=== PATIENT | male | born 1985 | race Caucasian/White ===

== ENCOUNTER 2017-02-10 12:16 | Emergency (ER) | payer SELFPAY ==
[2017-02-10] MEDS ORDERED: Ketorolac INJ* 60 MG/2 ML VIAL IM ONE (12:59)
--- NOTE | 2017-02-10 13:01 | UC ---
steve Dozier Timothy, scribed for Valarie Goel MD on 02/10/17 at 1258 . Neck Pain HPI - HPI Summary HPI Summary: Guy De Leon is a 31 yo male presenting to [facility] with sharp right arm and neck pain for the past 2 weeks. Pt states his pain started in his right upper nack and neck after "sleeping wrong." Pt states discomfort and tightness has progressed. Pt now with intermittent shooting pain down right arm. Pt denies muscle weakness. Pt RHD. Pt has taken ASA intermittently with little relief. Pt denies LAI. No vision changes. No cp, sob, abd pain. No h/o similar. He denies any weakness in his extremities. Pt denies direct trauma. He denies any other Sx. He is self-medicating with ASA, most recently yesterday. His MHx includes internal bleeding and surgery for resolution of the bleeding. Pt medication list was reviewed this visit. - History of Current Complaint Stated Complaint: ARM/NECK PAIN Time Seen by Provider: 02/10/17 12:29 Hx Obtained From: Patient Onset/Duration Of Injury/Symptoms: Days Mechanism Of Injury: No Known Trauma Timing: Constant Onset/Duration: Gradual Onset, Lasting Days, Still Present Severity: Moderate Pain Scale Used: 0-10 Numeric Location: Discrete At: - neck, raditing down right arm Character: Sharp - Allergies/Home Medications Allergies/Adverse Reactions: Allergies Allergy/AdvReac Type Severity Reaction Status Date / Time No Known Allergies Allergy Verified 02/10/17 13:22 PMH/Surg Hx/FS Hx/Imm Hx Previously Healthy: Yes - Surgical History Surgical History: Yes Surgery Procedure, Year, and Place: internal abdomen from football injury - Family History Known Family History: Positive: Hypertension, Diabetes Negative: Cardiac Disease - Social History Occupation: Employed Full-time Lives: With Family Alcohol Use: Rare Substance Use Type: None Smoking Status (MU): Never Smoked Tobacco Review Of Systems Constitutional: Positive: Negative Skin: Positive: Negative Eyes: Positive: Negative ENT: Positive: Negative Respiratory: Positive: Negative Cardiovascular: Positive: Negative Gastrointestinal: Positive: Negative Genitourinary: Positive: Negative Musculoskeletal: Positive: Other: - neck pain, right arm pain Neurological: Positive: Negative Psychological: Positive: Negative All Other Systems Reviewed And Are Negative: Yes Physical Exam Triage Information Reviewed: Yes Completion Of Physical Exam Limited Due To: Altered Mental Status Appearance: Well-Appearing, No Pain Distress, Well-Nourished Vital Signs Reviewed: Yes Eye Exam: Normal ENT: Positive: Normal ENT inspection, Hearing grossly normal Neck exam: Normal Neck: Positive: Supple, Nontender, No Lymphadenopathy Respiratory Exam: Normal Respiratory: Positive: Chest non-tender, Normal breath sounds, No respiratory distress Cardiovascular Exam: Normal Cardiovascular: Positive: RRR, No Murmur, Pulses Normal Abdominal Exam: Normal Abdomen Description: Positive: Nontender, No Organomegaly, Soft Bowel Sounds: Positive: Present Musculoskeletal Exam: Normal Musculoskeletal: Positive: Strength Intact, Other: - No pain C/T/L/S + TTP right trapezius Pain increases with ROM of neck extension and abduction of right shoulder Pt unable to abduct > 45 degrees second to pain - improved to 90 with passive ROM Pt unable to extend >45 - improves with passive ROM Neurological Exam: Normal Neurological: Positive: Other: - thumb up, a ok, finger spread, finger cross + gross sensation throughout Neck Pain Course/Dx - Course Course Of Treatment: Guy De Leon is a 31 yo male presenting to [facility] with neck, upper back, and right arm pain for the past 2 weeks. Pain along palpation of trapezius. limited AROM - improved with PROM Upon questioning Pt states he has tolerated narcotics in the past with no complications. Pt was advised as to the cause of muscle spasms and the possible treatments and prescriptions. After clinical examination he will be discharged home with appropriate instructions. d/w pt sling - must relax and allow to hold weight or arm. recommend heat - slow stretching exericses. Toradol IM at . Flexeril / [place] - Differential Dx/Diagnosis Differential Dx/HQI/PQRI: Other - muscle spasm Provider Diagnoses: right trapezius muscle spasm Discharge - Discharge Plan Condition: Stable Disposition: HOME Prescriptions: Cyclobenzaprine TAB* [Flexeril 10 MG TAB*] 10 mg PO BID PRN #20 tab PRN Reason: Spasms Hydrocodone-Acetaminophen [[place] 5-325 mg] 1 - 2 tab PO Q6HR PRN #15 tab MDD 8 PRN Reason: Pain Patient Education Materials: Warm Compress or Soak (ED), Muscle Spasm (ED) Referrals: Vania Henning MD [Primary Care Provider] - 2 Days Additional Instructions: - Okay to take tylenol product (Tylenol or [place]) for pain. do NOT drive, operate machinery or drink alcohol while taking codeine. Do NOT drive, operate machinery or drink alcohol while taking [place] - Take muscle relaxer as prescribed -Do NOT drive, operate machinery or drink alcohol while taking narcotics or muscle relaxer - Apply heat - wrapped in a towel - 20 minutes at a time, 2-3 times a day - Wear arm sling for comfort and support - concentrate relaxing your arm and letting the sling hold the weight - Contact your doctor to arrange a follow-up appointment. Contact your doctor or return with questions or concerns Return to urgent care or the emergency department with any new or recurring symptoms. The documentation as recorded by the steve colon Timothy accurately reflects the service I personally performed and the decisions made by me, Valarie Goel MD.
== END 2017-02-10 13:40 | disposition home or self-care (01) ==
LOC: UCEAST 12:16
DX: M62.838 Other muscle spasm (principal)
CPT/HCPCS: 99202; G0463; J1885

== ENCOUNTER 2018-02-04 01:00 | Observation (INO) | payer OTHER ==
[2018-02-04] MEDS ORDERED: Insulin REGULAR(*) 1 UNITS UNIT IV PUSH ONE ×2 (01:59→03:17)
[2018-02-04] MEDS ORDERED: NS 0.9% 1000 ML* 2,000 ML IV ONE ×2 (01:59→05:32)
[2018-02-04 02:54] LABS: ABS Basophils 0.1 10^3/ul (0-0.2); ABS Eosinophils 0.1 10^3/ul (0-0.6); ABS Lymphocytes 1.8 10^3/ul (1.0-4.8); ABS Monocytes 0.5 10^3/ul (0-0.8); ABS Neutrophils 6.7 10^3/ul (1.5-7.7); ABS Nucleated RBC 0 10^3/ul; Eosinophil % 1.6 % (0-6); Hematocrit 43 % (42-52); Hemoglobin 14.8 g/dl (14.0-18.0); Lymphocyte % 19.8 % (25-47); Mean Corpuscular HGB Conc 34 g/dl (31-36); Mean Corpuscular Hemoglobin 31 pg (27-31); Mean Corpuscular Volume 92 fL (80-94); Mean Platelet Volume 9.9 um3 (7.4-10.4); Nucleated Red Blood Cells % 0; Platelet Count 227 10^3/ul (150-450); Red Blood Count 4.71 10^6/ul (4.0-5.4); Red Cell Distribution Width 13 % (10.5-15); White Blood Count 9.2 10^3/ul (3.5-10.8)
[2018-02-04 03:02] LABS: INR 0.9 (0.77-1.02)
[2018-02-04 03:10] LABS: EGFR Non-African American 101.7 (>60)
[2018-02-04] MEDS ORDERED: Insulin REGULAR(*) 1 UNITS UNIT ONE (03:18)
[2018-02-04 04:27] LABS: Urine Appearance Clear; Urine Blood 1+ (Negative); Urine Color Yellow; Urine Ketones Trace (Negative); Urine Protein Negative (Negative); Urine Specific Gravity 1.035 (1.010-1.030); Urine Urobilinogen Negative (Negative)
[2018-02-04] MEDS ORDERED: Levofloxacin TAB* 500 MG PO ONE (04:38)
[2018-02-04] MEDS ORDERED: metFORMIN* 500 MG TAB PO ONE (04:39)
[2018-02-04] MEDS ORDERED: Insulin IVPB 100 units/100 ml 100 UNITS/100 ML UNIT IVPB ONE (05:00)
--- NOTE | 2018-02-04 05:12 | ED ---
Shady oDzier Tiffany, scribed for Jass Rhodes MD on 02/04/18 at 0201 . Dizziness - HPI Summary HPI Summary: 32 y/o M presenting to [facility] complains of dizziness that began yesterday. Symptoms aggravated by nothing. Symptoms alleviated by nothing. Reports blurred vision, nausea. Denies pain. Pt states he has been extremely thirsty, drinking a lot of water, peeing a lot. FHx of diabetes. No hx of diabetes. - History Of Current Complaint Chief Complaint: EDNauseaVomitDiarrh Stated Complaint: NAUSEA/VOMITING Time Seen by Provider: 02/04/18 01:43 Hx Obtained From: Patient Onset/Duration: Still Present Aggravating Factor(s): Nothing Alleviating Factor(s): Nothing Associated Signs And Symptoms: Positive: Negative - Pain, Other: - blurred vision, nausea, has been extremely thirsty, drinking a lot of water, peeing a lot - Allergies/Home Medications Allergies/Adverse Reactions: Allergies Allergy/AdvReac Type Severity Reaction Status Date / Time No Known Allergies Allergy Verified 02/10/17 13:22 Home Medications: Home Medications NK [No Home Medications Reported] 02/04/18 [History Confirmed 02/04/18] PMH/Surg Hx/FS Hx/Imm Hx Previously Healthy: No Cardiovascular History: Reports: Hx Hypertension - BORDERLINE Sensory History: Reports: Hx Contacts or Glasses Opthamlomology History: Reports: Hx Contacts or Glasses Psychiatric History: Denies: Hx Panic Disorder - Surgical History Surgery Procedure, Year, and Place: internal abdomen from football injury - Immunization History Date of Tetanus Vaccine: utd Date of Influenza Vaccine: none Infectious Disease History: No Infectious Disease History: Denies: Traveled Outside the [place] in Last 30 Days - Family History Known Family History: Positive: Hypertension, Diabetes Negative: Cardiac Disease - Social History Alcohol Use: Rare Hx Substance Use: No Substance Use Type: Reports: None Hx Tobacco Use: No Smoking Status (MU): Never Smoked Tobacco Review of Systems Positive: Blurred Vision Positive: Nausea Positive: other - has been extremely thirsty, drinking a lot of water, peeing a lot. Musculoskeletal: Negative - pain Neurological: Other - Dizziness All Other Systems Reviewed And Are Negative: Yes Physical Exam - Summary Physical Exam Summary: VITAL SIGNS: Reviewed. GENERAL: Patient is a well-developed and nourished male who is lying comfortable in the stretcher. Patient is not in any acute respiratory distress. He is morbidly obses. HEAD AND FACE: No signs of trauma. No ecchymosis, hematomas or skull depressions. No sinus tenderness. EYES: PERRLA, EOMI x 2, No injected conjunctiva, no nystagmus. EARS: Hearing grossly intact. Ear canals and tympanic membranes are within normal limits. MOUTH: Oropharynx within normal limits. NECK: Supple, trachea is midline, no adenopathy, no JVD, no carotid bruit, no c- spine tenderness, neck with full ROM. CHEST: Symmetric, no tenderness at palpation LUNGS: Clear to auscultation bilaterally. No wheezing or crackles. CVS: Regular rate and rhythm, S1 and S2 present, no murmurs or gallops appreciated. ABDOMEN: Soft, non-tender. No signs of distention. No rebound no guarding, and no masses palpated. Bowel sounds are normal. EXTREMITIES: FROM in all major joints, no edema, no cyanosis or clubbing. NEURO: Alert and oriented x 3. No acute neurological deficits. Speech is normal and follows commands. SKIN: Dry and warm Triage Information Reviewed: Yes Vital Signs On Initial Exam: Initial Vitals Temp Pulse Resp BP Pulse Ox 96.9 F 105 22 154/96 94 02/04/18 01:01 02/04/18 01:01 02/04/18 01:01 02/04/18 01:01 02/04/18 01:01 Vital Signs Reviewed: Yes Diagnostics - Vital Signs Vital Signs Temp Pulse Resp BP Pulse Ox 02/04/18 01:01 96.9 F 105 22 154/96 94 - Laboratory Result Diagrams: 02/04/18 02:40 02/04/18 02:40 Lab Statement: Any lab studies that have been ordered have been reviewed, and results considered in the medical decision making process. - Radiology CXR Radiology Interpretation Completed By: ED Physician - CXR is negative. Pending official report. Re-Evaluation - Re-Evaluation First Eval Re-Evaluation Time: 04:54 Change: Unchanged Comment: Pt agreeable to admission. Dizzy Course/Dx - Course Course Of Treatment: 32 y/o M presenting to [facility] complains of dizziness that began yesterday. Finger stick showed high blood glucose. Negative CXR. Pt glucose levels are not going down despite adminstration of insulin, so he will be admitted to Dr. Mata, hospitalist. - Diagnoses Provider Diagnoses: Hyperglycemia, Diabetes mellitus, new onset - Provider Notifications Discussed Care Of Patient With: Lane Mata Time Discussed With Above Provider: 04:53 Instructed by Provider To: Other - Dr. Mata, hospitalist, agrees to admit patient. Discharge - Sign-Out/Discharge Documenting (check all that apply): Discharge/Admit/Transfer - Discharge Plan Condition: Fair Disposition: ADMITTED TO [facility] Referrals: Vania Henning MD [Primary Care Provider] - The documentation as recorded by the Shady colon Tiffany accurately reflects the service I personally performed and the decisions made by , Jass Rhodes MD.
[2018-02-04] MEDS ORDERED: Acetaminophen TAB* 325 MG PO PRN (05:26)
[2018-02-04] MEDS ORDERED: Ondansetron INJ* 2 MG/ML VIAL IV PRN (05:26)
[2018-02-04] MEDS ORDERED: NS 0.9% 1000 ML* 1,000 ML IV SCH (05:30)
[2018-02-04] MEDS ORDERED: Insulin IVPB 100 units/100 ml 100 UNITS/100 ML UNIT IVPB SCH (06:00)
[2018-02-04 06:03] LABS: ABS Basophils 0.1 10^3/ul (0-0.2); ABS Eosinophils 0.2 10^3/ul (0-0.6); ABS Lymphocytes 2.7 10^3/ul (1.0-4.8); ABS Monocytes 0.6 10^3/ul (0-0.8); ABS Neutrophils 5.7 10^3/ul (1.5-7.7); ABS Nucleated RBC 0 10^3/ul; Eosinophil % 2.4 % (0-6); Hematocrit 42 % (42-52); Hemoglobin 14.7 g/dl (14.0-18.0); Lymphocyte % 28.6 % (25-47); Mean Corpuscular HGB Conc 35 g/dl (31-36); Mean Corpuscular Hemoglobin 32 pg (27-31); Mean Corpuscular Volume 91 fL (80-94); Mean Platelet Volume 9.7 um3 (7.4-10.4); Nucleated Red Blood Cells % 0.1; Platelet Count 222 10^3/ul (150-450); Red Blood Count 4.65 10^6/ul (4.0-5.4); Red Cell Distribution Width 13 % (10.5-15); White Blood Count 9.3 10^3/ul (3.5-10.8)
[2018-02-04 06:32] LABS: EGFR Non-African American 113.7 (>60)
--- NOTE | 2018-02-04 08:20 | RAD ---
INDICATION: Weakness COMPARISON: None TECHNIQUE: An AP portable view obtained at 0220 hours is submitted. FINDINGS: Bones/Soft Tissues: There are no acute bony findings. Cardiomediastinal: The cardiomediastinal silhouette is normal. Lungs: There are no infiltrates. Pleura: There are no pleural effusions. Other: None IMPRESSION: NO ACTIVE DISEASE.
[2018-02-04] MEDS: ceFAZolin 2 GM PREMIX (*) 2 GM/50 ML BAG IVPB SCH ×2 (09:22→17:17)
[2018-02-04] MEDS: KCL 10 MEQ/50 ML IVPREMIX* 10 MEQ/50 ML BAG IV SCH ×2 (09:22→14:35)
[2018-02-04] MEDS: Nystatin TOP POWDER* 15 GM BTL TOPICAL SCH ×3 (09:23→21:29)
[2018-02-04] MEDS: Heparin VIAL(*) 5000 UNITS/ML VIAL (FIVE THOUSAND) SUBCUT SCH ×2 (09:24→17:17)
--- NOTE | 2018-02-04 10:33 | HP ---
CC: Dr. Henning * HISTORY AND PHYSICAL: DATE OF ADMISSION: 02/04/18 PRIMARY CARE PROVIDER: Dr. Henning. ATTENDING PHYSICIAN WHILE IN THE HOSPITAL: Dr. Lane Mata * (report dictated by Edison Grossman NP). CHIEF COMPLAINT: 1. Increased thirst. 2. Frequency in urination. 3. Dizziness. HISTORY OF PRESENTING ILLNESS: Mr. De Leon is a 32-year-old patient who has a history of childhood asthma only, who gives a history today stating that the he has been having trouble the last week with increased thirst, he is unable to quench his thirst. He said he has been drinking upwards of gallons of fluids a day particularly water, in addition to this soda, fruit punch. He says his appetite has been decreased. He says he has been urinating significant amounts. No dysuria. He has had large volume urination. No dysuria with this. He denies any abdominal pain. He had 1 episode of nausea and vomiting today. He says he noticed that a last couple of days he has been having increased dizziness and has felt lightheaded. He also stated that he was having some trouble reading signs when he was driving, which was new for him. He was concerned that there was something going on because he just was not feeling good, he was feeling fatigued. He just had no energy. So he decided to be evaluated today here in the ED. When initial fingerstick was checked, it was greater than 444 on our [id number] testing and the initial blood sugar on labs showed a blood sugar of 670. He denies any chest pain or shortness of breath. He does admit to having trouble with a rash in his groin and some itching. In addition to this, he also notes that he has one area of erythema noted to this right thigh and he says he had a pimple there that he squeezed and he had pus come out of it. Again, no fevers, no chest pain, no shortness of breath. Because of the fact that his sugars were significantly elevated in the ED, we were asked to evaluate for admission. PAST MEDICAL HISTORY: Significant for childhood asthma. PAST SURGICAL HISTORY: He has had an appendectomy. HOME MEDICATIONS: Denied. ALLERGIES TO MEDICATIONS: Include no known drug allergies. FAMILY HISTORY: His father's history is unknown. His mother is healthy. SOCIAL HISTORY: Former smoker, quit several years ago. He rarely drinks alcohol. He works as a regional truck driver. Surrogate decision maker is his filuise. REVIEW OF SYSTEMS: There is no documented fever. He denies having any significant weight change. There is no double vision. He denies having any ear discharge. There is no rhinorrhea. No sore throat. No thyroid enlargement. Denied having any chest pain. There is no orthopnea. There is no nocturnal dyspnea. There was no abdominal pain. There was one episode with nausea and vomiting. There was no dysuria. He did admit to having frequency of urination. Denies having any seizure. No loss of consciousness. No pruritus and no skin ulcerations. Review of 14 systems completed, all others were negative. PHYSICAL EXAMINATION GENERAL: At this time, Mr. De Leon is a 32-year-old male patient; he is morbidly obese. He is sitting on the ED stretcher. He does not appear to be in any acute distress. VITAL SIGNS: Blood pressure 147/92, pulse 99, respirations were 18, O2 sat 96% , temperature 96.9. HEENT: Head is atraumatic and normocephalic. Eyes: EOMs are intact. Sclerae are anicteric and not pale. Throat: Oral mucosa appears to be dry. No oropharyngeal erythema. NECK: Supple. LUNGS: Clear to auscultation bilaterally. There are no wheezes, rales, or rhonchi. HEART: Sounds S1, S2. He had a regular rate and rhythm. No murmurs, rubs, or gallops. ABDOMEN: Soft, flat, nontender. Bowel sounds were present. EXTREMITIES: Pulses were 2+ throughout. He is moving all 4 extremities with 5/ 5 strength. NEUROLOGICAL: The patient is awake, he is alert, he is oriented x3. He had no gross focal deficits. SKIN: Grossly intact with the exception he does have into his abdominal groin area he has significant erythema. In addition of this, he has on his right thigh an area of fluctuance that again did drain today. There is an area of induration. No fluctuance is noted. There is some erythema surrounding this area on his right thigh just above the right knee. Otherwise intact. LABORATORY DATA/DIAGNOSTIC STUDIES: Today revealing a WBC of 9.2, RBC of 4.71 , hemoglobin of 14.8, hematocrit of 43, and a platelet count of 227. He did have an INR of 0.090, PTT of 27.8. His VBG was unremarkable. His sodium was 127, potassium was 3.5, chloride of 91, bicarb 25, BUN 11, creatinine 0.87, his glucose initially was 697, lactate 2, calcium 9, total bili 0.5. AST 56, ALT 134, albumin of 3.6. Urine showed a high specific gravity, trace ketones, 1+ blood, 1+ leukocyte esterase, 1+ wbc, 2+ rbc, 2+ glucose. He had a chest x-ray obtained today, difficult film because of his body habitus. I do not see any infiltrates or pulmonary edema or effusions. The right hemidiaphragm did appear to be elevated. There was no previous chest x-ray for comparison. Old medical records were reviewed. ASSESSMENT AND PLAN: Mr. De Leon is a 32-year-old male patient coming into the ED today again with complaints of polydipsia, polyuria, on evaluation found to be diabetic and he has also appeared to be in, most likely, a hyperosmolar, nonketotic state. He will be admitted under inpatient status for: 1. Diabetes with associated hyperosmolar, nonketotic state. I am checking a serum osmo. I am going to give the patient two more liters of fluid. Normal saline at 150 has been ordered. I am going to start him on an insulin drip at 8 /hour with q. 1 hour fingersticks and q. 4 BMPs. We will get a BMP now to monitor his potassium. I am going to go ahead and replace it as prior to insulin boluses that were given here in the ED, his potassium was 3.5 and we will continue to follow. I did place a referral to [facility] and also to our emr analyst as he is a new diabetic and I also will place a nutrition consult. 2. Hyponatremia. Again, this is fictitiously low. His corrected sodium was 136. At this point, we will just continue to monitor this with frequent BMPs. 3. Folliculitis. It looks like he does have a folliculitis to the right lower extremity. I will place him on Ancef. 4. The patient also does appear to have a ricardo infection of the groin. I am also going to place him on nystatin powder for this. 5. Childhood asthma. Not an active issue. Follow up with primary care physician. 6. DVT prophylaxis. He is moderate risk. We will order heparin subcu. 7. Code status. Full code. 8. Fluid, electrolytes, and nutrition. Again, we will check his BMPs frequently. I would recommend putting him on a consistent carb diet. TIME SPENT: On the admission was 60 minutes; greater than half that time was spent [id number] with the patient, obtaining my history and physical. The other half of the time spent going over the plan of care with the patient and implementing the plan of care. I did discuss plan of care with my attending, Dr. Mata; he is in agreement. EDISON GROSSMAN NP [id number]/CPS #: [id number] [email or web address]
[2018-02-04 14:06] LABS: EGFR Non-African American 124.5 (>60)
[2018-02-04] MEDS ORDERED: Dextrose 50% Syringe 50 ML* 25 GM/50 ML SYRINGE IV PUSH PRN (14:29)
[2018-02-04] MEDS ORDERED: Potassium Chlor TAB* 20 MEQ TAB.ER PO STA (14:34)
[2018-02-04] MEDS ORDERED: Insulin GLARGINE(*) 1 UNITS UNIT SUBCUT SCH ×2 (15:00→20:37)
[2018-02-04] MEDS: Insulin LISPRO* 1 UNITS UNIT SUBCUT SCH ×2 (18:03→21:28)
--- NOTE | 2018-02-04 20:32 | PN ---
Hospitalist Progress Note Date of Service: 02/04/18 Pt seen and examined. Meds and labs reviewed. ROS: Denied LAI/dizziness, F/C, N/V, CP, SOB, increased cough, sputum production , abd pain, diarrhea, constipation, dysuria, myalgias, arthralgias, throat pain , and new skin lesions. The rest of the 14 point ROS are unremarkable. PHYSICAL EXAM: GEN APPEARANCE: Awake, not in acute distress HEENT: NC/AT, PERRLA, moist oral mucosa, (-) throat erythema NECK: Soft, supple, (-) cervical LAD, (-)JVD HEART: S1S2 WNL, RRR, No MRG CHEST: CTA, BL, GAE, No W/R/R ABD: Soft, ND/NT, NABS 4x Q EXT: No C/C/E SKIN: Warm to touch PSYCH: No active psychosis, hallucinations, depression, SI/HI ASSESSMENT AND PLAN: #Hyperosmolar nonketotic state, resolved/Newly diagnosed diabetes: -Transitioned to SQ Insulin earlier today after appropriate overlap between SQ and IV -Advised life style modifications and importance of eye exam, foot exam, and F/U with PCP #Foliculitis: -Continue Cefazolin #Candidal groin intertrigo: -Continue Nystatin powder #DVTp: -Continue Heparin SQ #Dispo: -For PT eval
[2018-02-04] MEDS: Insulin REGULAR(*) IIP for Adult Hyperglycemia (2017) IVPB SCH (21:32)
[2018-02-05] MEDS: ceFAZolin 2 GM PREMIX (*) 2 GM/50 ML BAG IVPB SCH ×3 (01:29→12:37)
[2018-02-05] MEDS: Heparin VIAL(*) 5000 UNITS/ML VIAL (FIVE THOUSAND) SUBCUT SCH ×3 (01:30→12:38)
[2018-02-05 06:15] LABS: ABS Basophils 0.1 10^3/ul (0-0.2); ABS Eosinophils 0.2 10^3/ul (0-0.6); ABS Lymphocytes 2.3 10^3/ul (1.0-4.8); ABS Monocytes 0.4 10^3/ul (0-0.8); ABS Neutrophils 3.9 10^3/ul (1.5-7.7); ABS Nucleated RBC 0 10^3/ul; Eosinophil % 3.6 % (0-6); Hematocrit 41 % (42-52); Lymphocyte % 33.1 % (25-47); Mean Corpuscular HGB Conc 35 g/dl (31-36); Mean Corpuscular Hemoglobin 32 pg (27-31); Mean Corpuscular Volume 92 fL (80-94); Mean Platelet Volume 9.7 um3 (7.4-10.4); Nucleated Red Blood Cells % 0.1; Platelet Count 187 10^3/ul (150-450); Red Blood Count 4.42 10^6/ul (4.0-5.4); Red Cell Distribution Width 13 % (10.5-15); White Blood Count 6.8 10^3/ul (3.5-10.8)
[2018-02-05 06:34] LABS: EGFR Non-African American 118.9 (>60)
[2018-02-05] MEDS: Insulin REGULAR(*) IIP for Adult Hyperglycemia (2017) IVPB SCH (07:49)
[2018-02-05] MEDS: Insulin LISPRO* 1 UNITS UNIT SUBCUT SCH ×2 (08:35→12:58)
[2018-02-05] MEDS ORDERED: Lisinopril TAB* 10 MG PO SCH (11:00)
[2018-02-05] MEDS: Nystatin TOP POWDER* 15 GM BTL TOPICAL SCH ×3 (13:57→14:11)
--- NOTE | 2018-02-05 15:12 | CONSULT ---
Subjective Reason for Visit: Increased thirst, increased urination, dizziness Admission Date: 02/04/18 Glucose Level On Admission: 697 History Of Present Illness: Mr. De Leon is a 32 year old male, previously in good health, who gives a history of increased urination, thirst, and generally feeling unwell for the past two weeks. On 02/03, symptoms worsened and he began experiencing nausea, blurred vision, dizziness, and vomiting. He presented to the [facility], where his blood glucose was noted to be 697. He was admitted with newly diagnosed type II diabetes with associated hyperosmolar nonketotic state. Patient History Surgical History: Yes Surgery Procedure, Year, and Place: internal abdomen from football injury Past Family History: Reports history of type II diabetes in his grandmother and several maternal aunts Lives With: Partner Social Support: Friend at bedside Preferred/Primary Language: Bahamian Employed/Unemployed: Employed Hx Tobacco Use: No Review Of Systems - Review of Systems Constant: - - Reports poor appetite, fatigue, generally feeling unwell Eyes: - - Complains of blurred vision Abdominal: - - Complains of nausea, vomiting, and heartburn Skin: - - Fungal infection left chest and groin. Endocrine: - - Complains of polyuria and polydipsia Objective Allergies Allergy/AdvReac Type Severity Reaction Status Date / Time No Known Allergies Allergy Verified 02/10/17 13:22 Home Medications Medication Instructions Recorded Confirmed Type Cephalexin CAP* [Keflex 500 CAP*] 500 mg PO QID 9 Days #18 cap 02/05/18 Rx Insulin Glargine,Hum.rec.anlog 55 unit SQ DAILY 30 Days #10 02/05/18 Rx [Basaglar Kwikpen U-100] insuln.pen Insulin LISPRO* [HumaLOG*] 15 units SUBCUT AC 30 Days #10 unit 02/05/18 Rx L. Acidophilus/L.bulgaricus 1 chw PO DAILY 12 Days #12 chw 02/05/18 Rx [Floranex] Lisinopril TAB* [Prinivil TAB 10 10 mg PO DAILY 30 Days #30 tab 02/05/18 Rx MG*] Nystatin TOP POWDER* 1 applic TOPICAL TID btl 02/05/18 Rx metFORMIN* [Glucophage 500 MG TAB 500 mg PO 0800,1700 30 Days #60 tab 02/05/18 Rx *] Hospital Medications: Current Medications Acetaminophen (Tylenol Tab*) 650 mg PO Q4H PRN PRN Reason: FEVER/PAIN Dextrose (D50w Syringe 50 Ml*) 12.5 gm IV PUSH .FOR FS < 60 - SS PRN PRN Reason: FS < 60 Heparin Sodium (Porcine) (Heparin Vial(*)) 5,000 units SUBCUT Q8H [facility] Last Admin: 02/05/18 09:15 Dose: 5,000 units Sodium Chloride (Ns 0.9% 1000 Ml*) 1,000 mls @ 150 mls/hr IV PER RATE [facility] Last Admin: 02/05/18 12:57 Dose: 150 mls/hr Insulin Human Regular (Insulin Regular Ivpb) 100 units in 100 mls @ 0 mls/hr IVPB Q24H [facility]; Per Protocol PRN Reason: Protocol Last Admin: 02/05/18 07:49 Dose: Not Given Cefazolin Sodium/Dextrose (Kefzol 2 Gm Premix(*)) 2 gm in 50 mls @ 100 mls/hr IVPB Q8H [facility] Last Admin: 02/05/18 09:15 Dose: 100 mls/hr Insulin Glargine (Lantus(*)) 55 units SUBCUT Q24H [facility] Last Admin: 02/04/18 21:27 Dose: 55 units Insulin Human Lispro (Humalog*) 0 units SUBCUT ACHS [facility] PRN Reason: Protocol Last Admin: 02/05/18 12:58 Dose: 9 units Lisinopril (Prinivil Tab*) 10 mg PO DAILY [facility] Last Admin: 02/05/18 12:58 Dose: 10 mg Metformin HCl (Glucophage*) 500 mg PO 0800,1700 [facility] Nystatin (Nystatin Top Powder*) 1 applic TOPICAL TID [facility] Last Admin: 02/05/18 14:11 Dose: Not Given Ondansetron HCl (Zofran Inj*) 4 mg IV Q6H PRN PRN Reason: NAUSEA Lab Data: VBG pH 7.41 (7.33-7.43) 02/04/18 04:00 Sodium 134 mmol/L (139-145) L 02/05/18 05:50 Potassium 4.0 mmol/L (3.5-5.0) 02/05/18 05:50 BUN 8 mg/dL (6-24) 02/05/18 05:50 Creatinine 0.76 mg/dL (0.67-1.17) 02/05/18 05:50 Hemoglobin A1c 14.0 % (4.0-5.6) H 02/04/18 05:51 Calcium 8.5 mg/dL (8.6-10.3) L 02/05/18 05:50 Magnesium 1.9 mg/dL (1.9-2.7) 02/05/18 05:50 AST 68 U/L (13-39) H 02/05/18 05:50 ALT 120 U/L (7-52) H 02/05/18 05:50 Vital Signs: Vital Signs 02/05/18 02/05/18 02/05/18 07:58 08:00 09:00 Temperature 37.3 C Pulse Rate 85 96 Respiratory 20 15 Rate Blood Pressure 155/88 (mmHg) O2 Sat by Pulse 95 98 Oximetry 02/05/18 02/05/18 02/05/18 09:01 10:00 11:00 Temperature Pulse Rate 93 97 84 Respiratory 15 18 20 Rate Blood Pressure 164/99 176/97 162/82 (mmHg) O2 Sat by Pulse 96 94 95 Oximetry 02/05/18 02/05/18 12:02 12:08 Temperature 36.6 C 36.6 C Pulse Rate 93 93 Respiratory 20 20 Rate Blood Pressure 149/77 (mmHg) O2 Sat by Pulse 96 96 Oximetry Height: 5 ft 10 in Weight: 191.3 kg Body Mass Index (BMI): 60.5 Physical Exam General Appearance: Positive: Alert, Oriented x3, Obese, Pleasant, Lying In Bed Dentition: Positive: Dentition in Good Repair Cardiovascular: Positive: RRR Skin: Acanthosis Nigricans Plan Of Care Patient's Next Step: Plan is for patient to be discharged home on Basaglar 55 units, Lispro 15 units with meals, and 500 mg. Metformin. He was provided education regarding self injection of insulin and self monitoring of blood glucose. He provided return demonstration of both self injection and blood glucose monitoring using proper technique. We discussed the signs, symptoms, and treatment of hypo and hyperglycemia and when to seek medical attention. I recommend that he follow up as an outpatient at [facility] for continued diabetes education and lifestyle modification. Referral To: [facility] For Further OutPT Diabetic Training, DSME, Professional Dilated Eye Exam, Podiatry Diagnosis: Newly diagnosed type II diabetes with hyperglycemia Discharge Plan: Per hospitalist group Education Prior Diabetic Education: No Education Provided: Daily Self Injection, Blood Glucose Monitoring, When To Seek Medical Attention Handouts Provided: Signs/symptoms/treatment of hypo and hyperglycemia, Living Well With Diabetes Goals Goals: According to the [place] [employer], the following are your goals for Hemaglobin A1C, Blood Glucose. Hemaglobin A1C * <7.0% for most * <6.5% for "healthy" * <8.0% for "Less Healthy" Blood Glucose * Fasting Blood Glucose: 80-130 mg/dl * 2 Hour Post Prandial Glucose <180 mg/dl
[2018-02-05 16:44] VITALS: BP 139/73
[2018-02-05] MEDS ORDERED: metFORMIN* 500 MG TAB PO SCH (17:00)
--- NOTE | 2018-02-06 14:10 | DS ---
CC: Lane Mata MD; Jass Rhodes MD; Mary Bui NP; Vania Henning MD; Dr. Carey DISCHARGE SUMMARY: DATE OF ADMISSION: 02/04/18 DATE OF DISCHARGE: 02/05/18 DISCHARGE DIAGNOSES: 1. Hyperosmolar nonketotic state, resolved/newly diagnosed diabetes. 2. Folliculitis, improved. 3. Candidal groin intertrigo. 4. Hypertension. 5. Obesity hypoventilation syndrome. DISCHARGE MEDICATIONS: 1. Cephalexin 500 mg p.o. 4 times a day for 9 days. 2. Insulin glargine KwikPen 55 units subcu daily. 3. Insulin lispro 15 units subcu q.a.c. 4. Floranex tablet 1 tab p.o. daily. 5. Lisinopril 10 mg p.o. daily. 6. Metformin 500 mg p.o. b.i.d. 7. Nystatin powder apply topically to intertriginous groin area t.i.d. for a total of 14 days. HISTORY OF PRESENT ILLNESS/HOSPITAL COURSE: The patient is a 32-year-old gentleman with history of childhood asthma, who mentioned that he has been having trouble for the last week with increasing thirst and to quench his thirst he would drink a lot more. He mentions; however, that he does not have any polyphagia but has had some large volume urinating. He was concerned that something was amiss and given he does not feel good and feels easily fatigued. He then decided to be evaluated in the ED where he was found to have hyperosmolar nonketotic state. He was subsequently admitted and placed on an insulin drip protocol and was observed in the ICU. He was then transitioned to SQ Lovenox after a 2-hour bridging between the drip and the subcutaneous regimen and he was transferred to the floor for further titration of his newly prescribed insulin regimen. He was also placed on metformin. During this course he was also found to be hypertensive and had been advised lifestyle modifications to improve both diabetes control and hypertension. He also received multiple levels of diabetic teaching from the time of admission during my rounds, as well as a formal diabetic teaching that was documented and done by Ms. Radha Qureshi. He was advised to follow up closely with his primary care physician so that his regimen can be further optimized and that he will need to look at his feet every day for any wounds or scrapes or abrasions and that he will need to see an deployment specialist at least once a year. He mentions that he understands the above and is happy with the care and management that he has received in our facility. Of note, the patient was observed to be desaturating when he was asleep and hence an overnight oximetry study was done and reveals that he needs at least 4 L of O2 to correct his desaturation likely secondary to obesity hypoventilation syndrome. He was given Dr. Carey's office number to schedule a sleep a sleep study in the future in coordination with his PCP's care plan. PHYSICAL EXAMINATION: Shows a most recent vital signs of records with temperature of 98.3 degrees Fahrenheit, 97 beats per minute heart rate, 18 per minute respiratory rate, and blood pressure of 139/73. General Appearance: The patient is awake, alert, and oriented x3, not in acute distress. HEENT: Normocephalic and atraumatic. PERRLA. Extraocular muscles intact. Negative for icterus. Moist oral mucosa. Negative throat erythema. Neck: Soft, supple with no cervical lymphadenopathy, no JVD. Heart: S1 and S2 within normal limits. Regular rate and rhythm. No murmurs, rubs, or gallops. Chest: Clear to auscultation bilaterally. Good air entry. No wheezes, rales, or rhonchi. Abdomen: Soft, nondistended, and nontender. Normoactive bowel sounds x4 quadrants. Extremities: No cyanosis, clubbing, or edema. Psychiatric: No active psychosis, depression, suicidal or homicidal ideations. Skin is warm to touch. TIME SPENT: The total time spent evaluating the patient, reviewing pertinent data, and appropriate documentation is greater than 30 minutes. [id number]/[facility] #: [id number] TERI
== END 2018-02-05 16:35 | disposition home or self-care (01) ==
LOC: ED 01:00 → ICU 05:21 → INTOOBSV 05:21 → MED 02-05 12:04
PROVIDERS: ADMIT Hospitalist; ATTEND Student in an Organized Health Care Education/Training Program
DX: E11.00 Type 2 diabetes mellitus with hyperosmolarity without nonketotic hyperglycemic-hyperosmolar coma (NKHHC) (principal); E87.1 Hypo-osmolality and hyponatremia; L73.9 Follicular disorder, unspecified; B37.2 Candidiasis of skin and nail; Z87.891 Personal history of nicotine dependence; Z79.899 Other long term (current) drug therapy
CPT/HCPCS: 36415; 71045; 80048; 80053; 80076; 81003; 81015; 82803; 82947; 83036; 83605; 83735; 83930; 84100; 85025; 85610; 85730; 86140; 86337; 86341; 87040; 87086; 87641; 94762; 96372; 99221; 99285; A9270-GY; G0378; G8978-GP-CH; G8979-GP-CH; G8980-GP-CH; J0690; J1644; J1815; J3480

== ENCOUNTER → 2018-08-28 12:24 | Emergency (ER) | payer OTHER ==
[~2018-08-28 12:24] MED LIST: Famotidine IV* 10 MG/ML 2 ML (20 mg) IV SLOW PU ONE; NS 0.9% 1000 ML* 1,000 ML IV ONE; Ondansetron INJ* 2 MG/ML VIAL IV ONE
[2018-08-28 12:35] VITALS: BP 167/89
--- NOTE | 2018-08-28 13:13 | ED ---
Nausea/Vomiting/Diarrhea HPI - HPI Summary HPI Summary: Pt. is a 32 y.o male who presents to the ER for vomiting and diarrhea. Pt. states he was having a nausea and diarrhea about one week ago and that got better but then returned over the last few days with associated vomiting. Pt. concerned today because he developed abd. pain diffusely and there was what he believes was blood. Pt. states he has a hx of acid reflux and occasionally take prilosec. Denies dark stool. Past hx of DM and HTN. Pt. states family has been sick at home with same sxs. Symptoms are mild in severity. No current modifying factors. Hx of appendectomy. - History of Current Complaint Chief Complaint: EDAbdPain Stated Complaint: FLU LIKE SYMPTOMS/ABD PAIN Time Seen by Provider: 08/28/18 12:30 Hx Obtained From: Patient Pain Intensity: 5 - Allergies/Home Medications Allergies/Adverse Reactions: Allergies Allergy/AdvReac Type Severity Reaction Status Date / Time No Known Allergies Allergy Verified 02/10/17 13:22 Home Medications: Home Medications Trulicity 1.5 mg WEEKLY 08/28/18 [History Confirmed 08/28/18] metFORMIN* [Glucophage 500 MG TAB *] 500 mg PO QID 08/28/18 [History Confirmed 08/28/18] PMH/Surg Hx/FS Hx/Imm Hx Previously Healthy: Yes Cardiovascular History: Reports: Hx Hypertension - BORDERLINE Respiratory History: Reports: Hx Asthma - pt states asthma when he was younger Sensory History: Reports: Hx Contacts or Glasses - glasses Denies: Hx Hearing Aid Opthamlomology History: Reports: Hx Contacts or Glasses - glasses Psychiatric History: Denies: Hx Anxiety, Hx Attention Deficit Hyperactivity Disorder, Hx Eating Disorder, Hx Depression, Hx Panic Disorder, Hx Post Traumatic Stress Disorder, Hx Inpatient Treatment, Hx Community Mental Health Tx, Hx Schizophrenia, Hx Bipolar Disorder, Hx Suicide Attempt, Hx of Violent Episodes Against Others, Hx Substance Abuse, Other Psychiatric Issues/Disorders - Surgical History Surgery Procedure, Year, and Place: internal abdomen from football injury Hx Anesthesia Reactions: No - Immunization History Date of Tetanus Vaccine: utd Date of Influenza Vaccine: none Infectious Disease History: No Infectious Disease History: Denies: Hx Clostridium Difficile, Hx Hepatitis, Hx Human Immunodeficiency Virus (HIV), Hx of Known/Suspected MRSA, Hx Shingles, Hx Tuberculosis, Traveled Outside the [place] in Last 30 Days - Family History Known Family History: Positive: Hypertension, Diabetes Negative: Cardiac Disease - Social History Occupation: Employed Full-time Lives: With Family Alcohol Use: Rare Hx Substance Use: No Substance Use Type: Reports: None Hx Tobacco Use: No Smoking Status (MU): Never Smoked Tobacco Review of Systems Constitutional: Negative Negative: Fever, Chills Eyes: Negative ENT: Negative Cardiovascular: Negative Positive: Cough. Negative: Shortness Of Breath Positive: Abdominal Pain, Vomiting, Diarrhea, Nausea Genitourinary: Negative Musculoskeletal: Negative Skin: Negative Neurological: Negative All Other Systems Reviewed And Are Negative: Yes Physical Exam Triage Information Reviewed: Yes Vital Signs On Initial Exam: Initial Vitals Temp Pulse Resp BP Pulse Ox 96.5 F 72 18 167/89 98 08/28/18 12:31 08/28/18 12:31 08/28/18 12:31 08/28/18 12:31 08/28/18 12:31 Vital Signs Reviewed: Yes Appearance: Positive: Well-Appearing - Pt. lying in bed in NAD. S.O present. Skin: Positive: Warm, Dry Head/Face: Positive: Normal Head/Face Inspection Eyes: Positive: Normal, EOMI Neck: Positive: Supple Respiratory/Lung Sounds: Positive: Clear to Auscultation, Breath Sounds Present Cardiovascular: Positive: Normal, RRR Abdomen Description: Positive: Other: - Morbidly obese. Abd. is soft with mild lower pain on palpation. No rebound tenderness or guarding. Neurological: Positive: Normal, CN Intact II-III Diagnostics - Vital Signs Vital Signs Temp Pulse Resp BP Pulse Ox 08/28/18 12:31 96.5 F 72 18 167/89 98 - Laboratory Result Diagrams: 08/28/18 13:21 08/28/18 13:21 Lab Statement: Any lab studies that have been ordered have been reviewed, and results considered in the medical decision making process. Naus/Vom/Diarrhea Course/Dx - Course Course Of Treatment: Patient presenting with vomiting and diarrhea and abdominal cramping. He is afebrile with normal vital signs. He has a benign abdominal exam without reproducible pain and history of appendectomy. We'll IV fluids and Zofran as well as Pepcid. Basic lab work obtained and is within normal limits. Patient tolerating water without vomiting and is feeling better. Suspect viral in nature. Prescription for Zofran sent to pharmacy. Advised patient to can patient to continue Prilosec at home daily. Clear liquid diet for hours. Close follow-up with PCP if symptoms persist or return the Er if symptoms change or worsen. Patient understands and agrees with plan. - Differential Dx/Diagnosis Differential Diagnoses - Male: Appendicitis, Bowel Obstruction, Constipation, Diverticulitis, Gastroenteritis (Viral), Gastroenteritis (Bacterial), Vomiting, Diarrhea Provider Diagnosis: Gastroenteritis Condition At Discharge: Improved Discharge - Sign-Out/Discharge Documenting (check all that apply): Patient Departure - Discharge Plan Condition: Improved Disposition: HOME Prescriptions: Ondansetron TAB* [Zofran 4 MG Tab*] 4 mg PO Q6H PRN #12 tab PRN Reason: Nausea Patient Education Materials: Gastroenteritis (ED) Referrals: Vania Henning MD [Primary Care Provider] - Additional Instructions: Follow up with PCP if symptoms persist Clear liquid diet x 24 hours Increase fluids Zofran as directed Recommend taking your Prilosec daily as directed Return to ER if symptoms change or worsen - Billing Disposition and Condition Condition: IMPROVED Disposition: Home
[2018-08-28 13:34] LABS: ABS Basophils 0.1 10^3/ul (0-0.2); ABS Eosinophils 0.2 10^3/ul (0-0.6); ABS Lymphocytes 1.5 10^3/ul (1.0-4.8); ABS Monocytes 0.5 10^3/ul (0-0.8); ABS Neutrophils 9.1 10^3/ul (1.5-7.7); ABS Nucleated RBC 0 10^3/ul; Eosinophil % 1.4 %; Hematocrit 45 % (42-52); Hemoglobin 15.4 g/dl (14.0-18.0); Lymphocyte % 13.1 %; Mean Corpuscular HGB Conc 35 g/dl (31-36); Mean Corpuscular Hemoglobin 31 pg (27-31); Mean Corpuscular Volume 89 fL (80-94); Mean Platelet Volume 8.3 fL (7.4-10.4); Nucleated Red Blood Cells % 0; Platelet Count 294 10^3/ul (150-450); Red Blood Count 5.05 10^6/ul (4.00-5.40); Red Cell Distribution Width 13 % (10.5-15); White Blood Count 11.2 10^3/ul (3.5-10.8)
[2018-08-28 13:46] LABS: Albumin 3.9 g/dL (3.2-5.2); Albumin/Globulin Ratio 1.1 (1-3); BUN/Creatinine Ratio 10.1 (8-20); Calcium 8.9 mg/dL (8.6-10.3); EGFR Non-African American 113.7 (>60); Globulin 3.5 g/dL (2-4); Potassium 3.9 mmol/L (3.5-5.0); Total Bilirubin 0.4 mg/dL (0.2-1.0); Total Protein 7.4 g/dL (6.4-8.9)
== END | disposition home or self-care (01) ==
LOC: ED 12:24
DX: K52.9 Noninfective gastroenteritis and colitis, unspecified (principal); E11.9 Type 2 diabetes mellitus without complications; E66.01 Morbid (severe) obesity due to excess calories
CPT/HCPCS: 36415; 80053; 83690; 85025; 96361; 96374; 96375; 99282; J2405